=== PATIENT | male | born 1960 | race Hispanic/Latino ===

== ENCOUNTER → 2025-06-09 | Outpatient (CLI) | payer OTHER ==
--- NOTE | 2025-06-10 07:47 | HMCIMG ---
EXAM: CT Cardiac calcium scoring. CLINICAL HISTORY: Screening. TECHNIQUE: Thin collimated axial CT cardiac images were obtained. A CT scan is done according to ALARA (As Low As Reasonably Achievable). CONTRAST: None. COMPARISON: None provided. FINDINGS: Calcium Score: VESSEL Number of lesions Volume mm3 Equi. Mass/mg Calcium score LM 2 31.8 - 40.5 LAD 2 2.9 - 3.9 LCX 0 0 - 0 RCA 2 19.8 - 29.4 Total 6 54.4 - 73.8 IMPRESSION: The total calcium score is 73.8. 48 percentile. Mild cardiomegaly. /[place]
== END | disposition home or self-care (01) ==
LOC: RAH 14:10
PROVIDERS: ATTEND Internal Medicine Cardiovascular Disease
DX: Z13.6 Encounter for screening for cardiovascular disorders (principal); I51.7 Cardiomegaly
CPT/HCPCS: 75571